=== PATIENT | female | born 2000 | race Caucasian/White ===

== ENCOUNTER → 2019-10-20 | Outpatient (REF) | payer OTHER ==
[2019-10-20 15:17] LABS: HEMATOCRIT 37.2 % (36.0-47.0); HEMOGLOBIN 12.6 g/dl (12.0-15.5); MEAN CORPUSCULAR HEMOGLOBIN 29.1 pg (27.0-33.0); MEAN CORPUSCULAR HGB CONC 33.9 g/dl (32.0-36.5); MEAN CORPUSCULAR VOLUME 85.9 fl (80.0-96.0); PLATELET COUNT, AUTOMATED 343 10^3/uL (150-450); RED BLOOD COUNT 4.33 10^6/uL (4.00-5.40); WHITE BLOOD COUNT 7.1 10^3/uL (4.0-10.0)
[2019-10-20 15:38] LABS: HEMOGLOBIN A1c 5.1 %
[2019-10-20 16:03] LABS: HCG, SERUM QUANTITATIVE 13674 MIU/ML; RUBELLA IgG QUALITATIVE IMMUNE (IMMUNE)
[2019-10-20 16:30] LABS: HIV 1&2 SCREEN CENTAUR NEGATIVE (NEGATIVE)
[2019-10-23 12:39] LABS: HEPATITIS B SURFACE ANTIGEN NEGATIVE (NEGATIVE)
[2019-10-23 13:07] LABS: HEPATITIS C VIRUS ABY INDEX 0.1 INDEX (<0.8)
[2019-10-23 14:56] LABS: TOXOPLASMA IgG ABY <3.0 IU/mL (0.0-7.1)
== END ==
LOC: M LAB REF 13:27
PROVIDERS: ATTEND Nurse Practitioner Women's Health
DX: Z32.01 Encounter for pregnancy test, result positive (principal); O36.80X0 Pregnancy with inconclusive fetal viability, not applicable or unspecified; Z3A.00 Weeks of gestation of pregnancy not specified

== ENCOUNTER → 2020-01-29 | Outpatient (CLI) | payer MEDICAID ==
--- NOTE | 2020-01-29 12:41 | REP ---
OB ULTRASOUND: Real-time sonographic evaluation of the gravid uterus is performed. There is a single living intrauterine gestation. Estimated gestational age is 20 weeks 0 days with EDC 07/14/2020. Today's measurements indicate appropriate growth. BPD 43 mm = 19 weeks 0 days, 25th percentile HC 165 mm = 19 weeks 1 day, 26th percentile AC 147 mm = 20 weeks 0 days, 50th percentile Femur length 33 mm = 20 weeks 2 days, 57th percentile HC/AC ratio 1.12 within normal range. Estimated weight 326 grams, 47th percentile. Cervix is closed and measures 3.2 cm in length. heart rate 157 beats per minute. SEEN/GROSSLY UNREMARKABLE Lateral ventricles Yes Posterior fossa Yes Upper lip Yes Four-chamber heart No LVOT No RVOT No Stomach Yes Cord insertion Yes Three vessel cord Yes Kidneys Yes Bladder Yes Spine Yes position: Breech. Placenta: Posterior and grade 0 with no previa or abruption. Amniotic fluid: Within normal limits. Electronically Signed by Karthik Mercedes MD 01/29/2020 06:07 P
== END ==
LOC: M RAD 09:35
PROVIDERS: ATTEND Obstetrics & Gynecology
DX: Z34.80 Encounter for supervision of other normal pregnancy, unspecified trimester (principal)

== ENCOUNTER → 2020-02-28 | Outpatient (CLI) | payer MEDICAID ==
--- NOTE | 2020-02-28 13:10 | REP ---
REASON: Followup anatomy. Prior examination 01/29/2020 failed to optimally visualize four chamber heart and ventricular outflow tracts. Multiple ultrasonographic images of the gravid uterus show a single living intrauterine gestation in the cephalic presentation. Doppler interrogation of the heart shows a heart rate of 153 beats per minute. The placenta is posterior and not lying. The subjective amniotic fluid volume is within normal limits. The cervix measures 3.5 cm in length and is closed. Evaluation of the maternal adnexal spaces showed no abnormalities. BPD 5.9 cm = 24 weeks 0 days HC 21.8 cm = 23 weeks 6 days AC 19.7 cm = 24 weeks 2 days A femur length was not obtained. The estimated weight is 667 grams which is at the 40th percentile for a 24 week 2 day gestational age. The four chamber heart and ventricular outflow tracts were optimally visualized today and found to be within normal limits. This completes the anatomical screening. IMPRESSION: Single living intrauterine gestation as described above with an estimated gestational age of 24 weeks 1 day via composite criteria and an estimated date of delivery of 06/18/2020 by today's exam. No anomalies were detected. Electronically Signed by Juwan Trujillo DO 02/28/2020 01:58 P
== END ==
LOC: M RAD 11:42
PROVIDERS: ATTEND Obstetrics & Gynecology
DX: Z34.02 Encounter for supervision of normal first pregnancy, second trimester (principal); Z3A.24 24 weeks gestation of pregnancy

== ENCOUNTER → 2020-03-18 | Outpatient (CLI) | payer MEDICAID ==
[2020-03-18 10:35] LABS: HEMOGLOBIN 12.1 g/dl (12.0-15.5); MEAN CORPUSCULAR HEMOGLOBIN 29.8 pg (27.0-33.0); MEAN CORPUSCULAR HGB CONC 34.6 g/dl (32.0-36.5); MEAN CORPUSCULAR VOLUME 86.2 fl (80.0-96.0); PLATELET COUNT, AUTOMATED 273 10^3/uL (150-450); RED BLOOD COUNT 4.06 10^6/uL (4.00-5.40); WHITE BLOOD COUNT 8.7 10^3/uL (4.0-10.0)
== END ==
LOC: M LAB 09:05
PROVIDERS: ATTEND Obstetrics & Gynecology
DX: Z34.02 Encounter for supervision of normal first pregnancy, second trimester (principal); Z36.89 Encounter for other specified antenatal screening

== ENCOUNTER → 2020-03-27 | Outpatient (CLI) | payer MEDICAID | LOC: M LAB 07:52 | PROVIDERS: ATTEND Obstetrics & Gynecology | DX: Z36.89 Encounter for other specified antenatal screening (principal) ==

== ENCOUNTER → 2020-04-26 | Outpatient (CLI) | payer MEDICAID ==
[~2020-04-26] MED LIST: IBUP-1114 PO; LABE20TAB PO; PERCOCET PO; PRENTAB9 PO
[2020-04-26 15:25] LABS: CREATININE 24 HOUR, URINE 1477.5 MG/24HR (600-1800); TOTAL PROTEIN 24 HOUR URINE 1130.2 MG/24HR (50-150); URINE TOTAL PROTEIN 150.7 MG/DL (0-12)
[2020-04-26 15:26] LABS: ALT/SGPT 14 U/L (12-78); BILIRUBIN,TOTAL 0.2 MG/DL (0.2-1.0); CREATININE FOR GFR 0.74 MG/DL (0.55-1.30); LDH LACTATE DEHYDROGENASE 213 U/L (84-246); URIC ACID 5.8 MG/DL (2.6-6.0)
== END ==
LOC: M LAB 14:18
PROVIDERS: ATTEND Advanced Practice Midwife
DX: Z34.03 Encounter for supervision of normal first pregnancy, third trimester (principal)

== ENCOUNTER 2020-04-29 11:35 | Inpatient (IN) | payer OTHER, MEDICAID ==
[~2020-04-29] VITALS: Ht 170.2 cm; Wt 111.8 kg
[2020-04-29] VITALS (51 sets, daily range): BP systolic 122–184; BP diastolic 65–105
[2020-04-29] MEDS ORDERED: IBUP-1114 PO (12:04)
[2020-04-29] MEDS ORDERED: PRENTAB9 PO (12:04)
[2020-04-29] MEDS ORDERED: BETAMETHASONE SOLUSPAN 6MG/ML 5ML VIAL (J0702 PER 3MG) IM ONE (12:30)
[2020-04-29] MEDS ORDERED: LR 1,000 ML IV ONE (12:30)
[2020-04-29 13:16] LABS: HEMATOCRIT 32.6 % (36.0-47.0); HEMOGLOBIN 11.1 g/dl (12.0-15.5); MEAN CORPUSCULAR HEMOGLOBIN 28.8 pg (27.0-33.0); MEAN CORPUSCULAR VOLUME 84.5 fl (80.0-96.0); PLATELET COUNT, AUTOMATED 157 10^3/uL (150-450); RED BLOOD COUNT 3.86 10^6/uL (4.00-5.40); WHITE BLOOD COUNT 9.1 10^3/uL (4.0-10.0)
[2020-04-29 13:52] LABS: ALT/SGPT 12 U/L (12-78); BILIRUBIN,TOTAL 0.3 MG/DL (0.2-1.0); CREATININE FOR GFR 0.74 MG/DL (0.55-1.30); LDH LACTATE DEHYDROGENASE 270 U/L (84-246); URIC ACID 5.6 MG/DL (2.6-6.0)
[2020-04-29 14:44] LABS: TOTAL PROTEIN,RANDOM URINE 405.2 MG/DL (0.0-12.0)
[2020-04-29] MEDS ORDERED: LABETALOL 100MG/20ML VIAL As Ordered ONE ×2 (15:31→21:34)
[2020-04-29] MEDS: LABETALOL 100MG/20ML VIAL IV SCH ×6 (15:38→21:36)
--- NOTE | 2020-04-29 16:03 | REP ---
Clinical: Pre-eclampsia. Findings: Examination demonstrates a single live intrauterine in cephalic presentation. motion is identified by technologist. Placenta is noted posteriorly and grade 3 without evidence for placenta previa or abruption. Amniotic fluid volume is normal. Cervix measures 3.3 cm in length and appears closed. No evidence for nuchal cord. Gestational age by LMP 33w 0d with BERENICE 06/17/2020. Gestational age by current measurements 33w 0d with BERENICE 06/17/2020. FHR equals 150 beats per minute. BPP: 06/22 Estimated weight 2114 grams (46th percentile). AFV: 13.5 (8.3 - 24.5) Impression: Single live in cephalic presentation. BPP and AFV are normal. Electronically Signed by Duane Fernández MD 04/29/2020 03:53 P
[2020-04-29 17:54] LABS: HEMATOCRIT 34.3 % (36.0-47.0); HEMOGLOBIN 11.9 g/dl (12.0-15.5); MEAN CORPUSCULAR HEMOGLOBIN 29.2 pg (27.0-33.0); MEAN CORPUSCULAR HGB CONC 34.7 g/dl (32.0-36.5); MEAN CORPUSCULAR VOLUME 84.3 fl (80.0-96.0); PLATELET COUNT, AUTOMATED 175 10^3/uL (150-450); RED BLOOD COUNT 4.07 10^6/uL (4.00-5.40); WHITE BLOOD COUNT 13.9 10^3/uL (4.0-10.0)
[2020-04-29 18:13] LABS: ALT/SGPT 14 U/L (12-78); BILIRUBIN,TOTAL 0.3 MG/DL (0.2-1.0); CREATININE FOR GFR 0.77 MG/DL (0.55-1.30); LDH LACTATE DEHYDROGENASE 284 U/L (84-246); URIC ACID 5.5 MG/DL (2.6-6.0)
[2020-04-29] MEDS: LR 1,000 ML IV SCH (19:56)
[2020-04-30] VITALS (57 sets, daily range): BP systolic 99–188; BP diastolic 55–96
[2020-04-30] MEDS: LR 1,000 ML IV SCH ×3 (03:49→19:11)
[2020-04-30 06:08] LABS: HEMATOCRIT 31.5 % (36.0-47.0); HEMOGLOBIN 10.8 g/dl (12.0-15.5); MEAN CORPUSCULAR HGB CONC 34.3 g/dl (32.0-36.5); MEAN CORPUSCULAR VOLUME 84.7 fl (80.0-96.0); PLATELET COUNT, AUTOMATED 150 10^3/uL (150-450); RED BLOOD COUNT 3.72 10^6/uL (4.00-5.40)
[2020-04-30] MEDS ORDERED: BETAMETHASONE SOLUSPAN 6MG/ML 5ML VIAL (J0702 PER 3MG) IM ONE (07:30)
[2020-04-30 07:42] LABS: ALT/SGPT 12 U/L (12-78); BILIRUBIN,TOTAL 0.3 MG/DL (0.2-1.0); LDH LACTATE DEHYDROGENASE 265 U/L (84-246); URIC ACID 6.3 MG/DL (2.6-6.0)
[2020-04-30] MEDS: LABETALOL 100MG/20ML VIAL IV SCH ×5 (11:09→16:38)
[2020-04-30] MEDS ORDERED: LABETALOL 100MG/20ML VIAL As Ordered ONE (15:10)
[2020-04-30 17:41] LABS: HEMATOCRIT 33.6 % (36.0-47.0); HEMOGLOBIN 11.4 g/dl (12.0-15.5); MEAN CORPUSCULAR HEMOGLOBIN 29.4 pg (27.0-33.0); MEAN CORPUSCULAR HGB CONC 33.9 g/dl (32.0-36.5); MEAN CORPUSCULAR VOLUME 86.6 fl (80.0-96.0); PLATELET COUNT, AUTOMATED 166 10^3/uL (150-450); RED BLOOD COUNT 3.88 10^6/uL (4.00-5.40); WHITE BLOOD COUNT 15.5 10^3/uL (4.0-10.0)
[2020-04-30 18:07] LABS: ALT/SGPT 13 U/L (12-78); BILIRUBIN,TOTAL 0.4 MG/DL (0.2-1.0); CREATININE FOR GFR 0.84 MG/DL (0.55-1.30); LDH LACTATE DEHYDROGENASE 324 U/L (84-246); URIC ACID 6.3 MG/DL (2.6-6.0)
[2020-04-30] MEDS ORDERED: dexameTHASONE 4 MG/ML 1ML VIAL (J1100 PER 1MG) As Ordered ONE (19:03)
[2020-04-30] MEDS ORDERED: ONDANSETRON 4MG/2ML VIAL As Ordered ONE (19:03)
[2020-04-30] MEDS ORDERED: OXYTOCIN INJ 10 UNITS/ML VIAL (J2590) As Ordered ONE ×2 (19:04→19:05)
[2020-04-30] MEDS ORDERED: MORPHINE PRES-FREE INJ 10 MG/10 ML VIAL (J2274) As Ordered ONE (19:08)
[2020-04-30] MEDS ORDERED: ceFAZolin 2 GM/D5W 50 ML IV BAG (J0690 PER 500MG) As Ordered ONE (19:10)
[2020-04-30] MEDS ORDERED: BICITRA 30ML SOLN UDC As Ordered ONE (19:10)
[2020-04-30] MEDS ORDERED: BICITRA 30ML SOLN UDC PO ONE (19:15)
[2020-04-30] MEDS ORDERED: ceFAZolin SOD 2 GM in IV 1 EA IV ONE (19:15)
[2020-04-30] MEDS ORDERED: OXYTOCIN DRIP 30 UNITS in IV 1 EA IV SCH ×2 (19:22→20:35)
[2020-04-30] MEDS ORDERED: ONDANSETRON 4MG/2ML VIAL IV PRN ×2 (19:28→21:00)
[2020-04-30] MEDS ORDERED: METOCLOPRAMIDE INJ 10MG/2ML VIAL (J2765 PER 1) IV PRN ×2 (19:28→21:00)
[2020-04-30] MEDS ORDERED: diphenhydrAMINE 50MG/ML VIAL (J1200) IV PRN (19:28)
[2020-04-30] MEDS ORDERED: NALBUPHINE HCL 10 MG/ML AMP (J2300) IV PRN (19:28)
[2020-04-30] MEDS ORDERED: NALOXONE INJ 0.4MG/1ML VIAL (J2310 PER 1MG) IV PRN ×2 (19:28)
[2020-04-30] MEDS ORDERED: MEASLES,MUMPS,RUBELLA VACCINE INJ (MMR-II) (90707) SC SCH ×2 (19:30→20:45)
[2020-04-30] MEDS ORDERED: MOM 30ML SUSPENSION UDC PO PRN ×2 (19:30→20:45)
[2020-04-30] MEDS ORDERED: RHOGAM 300 MCG (1500 IU) INJ (J2790) IM SCH ×2 (19:30→20:45)
[2020-04-30] MEDS ORDERED: PHENYLephrine 500MCG 5ML (100MCG/ML) SYRINGE As Ordered ONE (19:36)
[2020-04-30] MEDS ORDERED: FAMOTIDINE/NS 20 MG/50 ML BAG (S0028) As Ordered ONE (20:03)
[2020-04-30 20:35] LABS: CORD GAS ABE A -5.9; CORD GAS ABE V -5.8; CORD GAS HCO3 A 21.4 MEQ/L; CORD GAS HCO3 V 21.2 MEQ/L; CORD GAS O2 SAT A 37.1 %; CORD GAS PCO2 A 49.1 mmHg; CORD GAS PCO2 V 47.1 mmHg; CORD GAS PH A 7.258 UNITS; CORD GAS PH V 7.271 UNITS; CORD GAS PO2 A 19.9 mmHg; CORD GAS PO2 V 23.2 mmHg; CORD GAS SBC A 18.3 MEQ/L; CORD GAS SBC V 18.7 MEQ/L; CORD GAS TCO2 A 22.9 MEQ/L; CORD GAS TCO2 V 22.6 MEQ/L
[2020-04-30] MEDS ORDERED: PERCOCET 5MG/325MG TAB PO PRN ×3 (20:45→21:00)
[2020-04-30] MEDS ORDERED: MAGNESIUM *L&D* 4GM/100ML BAG (40MG/ML) As Ordered ONE (20:49)
[2020-04-30] MEDS ORDERED: OXYTOCIN 30 UNITS IN 0.9% NaCl 500ML IV BAG (J2590) As Ordered ONE (20:50)
[2020-04-30] MEDS ORDERED: MEPERIDINE INJ 25 MG/ML VIAL (J2175) IV PRN (21:00)
[2020-04-30] MEDS ORDERED: fentaNYL 100 MCG/2 ML INJECTION (J3010) IV PRN (21:00)
[2020-04-30] MEDS ORDERED: DOCUSATE SODIUM 100MG CAPSULE PO SCH (21:00)
[2020-04-30] MEDS ORDERED: LR 1,000 ML IV SCH (21:00)
[2020-04-30] MEDS ORDERED: MAGNESIUM *L&D* 4GM/100ML BAG (40MG/ML) IV ONE (21:15)
[2020-04-30] MEDS ORDERED: MAGNESIUM SULFATE 4% INJ 20GM/500ML (40MG/ML) As Ordered ONE (21:32)
--- NOTE | 2020-04-30 21:38 | HPE ---
DATE OF ADMISSION: 04/29/2020 Sun is a 19-year-old female, 1, para 0-0-0 with an estimated date of confinement (EDC) of 06/17/2020, estimated gestational age (EGA) 33-1/7 weeks gestation, who is being admitted after presenting to the office with extremely elevated blood pressure. She had a 24-hour urine collection that shows greater than 1500 mg of protein, at the time of presentation to the office, the patient also complains of mild headache. No blurred vision. No shortness of breath. No epigastric pain. Her blood pressure in the office was 160/102, a repeat blood pressure was 157/98. Given her symptoms, the decision was made to admit the patient, repeat lab will be ordered. We will initiate steroid for lung maturity, as well as potential use of magnesium sulfate for seizure prophylaxis. Her record reviewed, which was essentially unremarkable other than morbid obesity and elevated blood pressure towards the tail end of her . She also had the 24-hour urine collection. Her blood type is A+, her rubella was immune, hepatitis negative, HIV negative, GC, chlamydia negative. 1-hour sugar testing was abnormal at 159, patient's 3-hour sugar testing was abnormal; however, her sugar lags were within normal limits. Her GBS is unknown. PAST MEDICAL HISTORY: Significant for obesity. PAST SURGICAL HISTORY: Denies. FAMILY HISTORY: Significant for diabetes. SOCIAL HISTORY: The patient denies any alcohol, drug or cigarette smoking. REVIEW OF SYSTEMS: Unremarkable. MEDICATIONS: vitamin. ALLERGIES: Allergies to PENICILLIN and AMOXICILLIN; the patient is unsure of what reaction she has had. PHYSICAL EXAM ON ADMISSION: Obese female, in no acute distress. Abdomen: Soft, obese, nontender, nondistended. Gravid. Extremities: No clubbing, cyanosis, +1 to +2 lower extremity edema. Deep tendon reflexes (DTRs) 2/4 bilaterally. Blood pressure on admission - she had a blood pressure on admission of 157/95. The patient had blood pressure as high as 162/82. Vaginal Exam: The patient was closed, thick and posterior with a narrow pelvis. Her spot protein and creatinine ratio was 0.8, platelets of 150, uric acid of 5.6, LDH mildly elevated at 200. ASSESSMENT: 1. Intrauterine at 33 weeks gestation with preeclampsia, rule out severe preeclampsia. 2. Gestational diabetes, diet controlled. PLAN: The patient counseled extensively, risk and benefit of delivery with the diagnosis of preeclampsia discussed, the risk of prematurity also discussed, the need for the baby to be in the intensive care unit (NICU) discussed. Predelivery neonatology consult obtained. At this point, will monitor the patient, do serial pre-eclamptic profile, steroid will be initiated for lung maturity, and we will consider delivery post steroid if her condition worsens.
[2020-04-30] MEDS: MAG Sulf (OBGYN) 20GM/500ML 20,000 MG in IV 1 EA IV SCH (21:48)
[2020-04-30] MEDS: DOCUSATE SODIUM 100MG CAPSULE PO SCH (23:10)
[2020-05-01] VITALS (37 sets, daily range): BP systolic 88–137; BP diastolic 50–88
[2020-05-01] MEDS ORDERED: LR 1,000 ML IV SCH (01:15)
[2020-05-01 06:49] LABS: HEMOGLOBIN 9.6 g/dl (12.0-15.5); MEAN CORPUSCULAR HEMOGLOBIN 29.9 pg (27.0-33.0); MEAN CORPUSCULAR HGB CONC 33.1 g/dl (32.0-36.5); MEAN CORPUSCULAR VOLUME 90.3 fl (80.0-96.0); PLATELET COUNT, AUTOMATED 146 10^3/uL (150-450); RED BLOOD COUNT 3.21 10^6/uL (4.00-5.40); WHITE BLOOD COUNT 14.9 10^3/uL (4.0-10.0)
[2020-05-01 07:13] LABS: ALT/SGPT 18 U/L (12-78); BILIRUBIN,TOTAL 0.2 MG/DL (0.2-1.0); CREATININE FOR GFR 0.72 MG/DL (0.55-1.30); LDH LACTATE DEHYDROGENASE 326 U/L (84-246); URIC ACID 5.5 MG/DL (2.6-6.0)
[2020-05-01] MEDS: MAG Sulf (OBGYN) 20GM/500ML 20,000 MG in IV 1 EA IV SCH (08:07)
[2020-05-01] MEDS ORDERED: PRENATAL VITAMINS CHEWABLE TABLET PO SCH (09:00)
[2020-05-01] MEDS: PRENATAL VITAMINS CHEWABLE TABLET PO SCH (09:00)
[2020-05-01] MEDS: DOCUSATE SODIUM 100MG CAPSULE PO SCH ×2 (09:00→21:50)
[2020-05-02] VITALS: BP 139/82
[2020-05-02 02:00] VITALS: BP 140/89
[2020-05-02 06:00] VITALS: BP 145/92
[2020-05-02] MEDS: DOCUSATE SODIUM 100MG CAPSULE PO SCH (08:12)
[2020-05-02] MEDS: PRENATAL VITAMINS CHEWABLE TABLET PO SCH (08:12)
[2020-05-02] MEDS ORDERED: BOOSTRIX/ADACEL VACCINE (DIPHTH/PERTUSS/ACELL/TETANUS) 0.5ML SYR IM ONE (09:00)
--- NOTE | 2020-05-02 10:41 | RO ---
DATE OF PROCEDURE: 04/30/2020 Sun is a 19-year-old female, 1, para 0, who was admitted at 33-1/7 weeks gestation with preeclampsia with some severe features. She also has a history of gestational diabetes diet controlled. She was monitored in labor and delivery. Serial pre-eclamptic lab was noted. Her uric acid continues to be elevated as well as her LDH. She did develop some headache, no blurred vision, with epigastric pain. At this point, given that she was post steroids and her symptoms, a decision was made to proceed with delivery. The patient requested delivery via a primary section. After obtaining informed consent, the patient was then taken to the operating room for the above-noted procedure. PREOPERATIVE DIAGNOSES: 1. Preeclampsia with severe features. 2. Gestational diabetes. 3. Intrauterine at 33-2/7 weeks gestation, remote from delivery. POSTOPERATIVE DIAGNOSES: 1. Preeclampsia with severe features. 2. Gestational diabetes. 3. Intrauterine at 33-2/7 weeks gestation, remote from delivery. PROCEDURE: Primary low transverse section. SURGEON: Dr. Juan Narayan PROFESSOR OF GRAPHIC DESIGN: ANESTHESIA: Spinal. COMPLICATIONS: None. ESTIMATED BLOOD LOSS: 600 mL. FINDINGS: Live male infant in occiput transverse position. Apgars 8 and 9. weight 3 pounds 13 ounces. Normal-appearing tubes and ovaries. DESCRIPTION OF PROCEDURE: After obtaining informed consent, the patient was taken to the operating room where spinal anesthetic was found to be adequate. She was then draped and prepped in the usual sterile fashion in the supine position. At this point, a Pfannenstiel incision was made. This was carried down to the fascia. Fascia was incised in midline fashion and carried through laterally. Superior aspect of the fascia then grasped with Mervat clamps, tented off and dissected off the rectus muscles sharply. The inferior aspect was dissected off in a similar fashion. Rectus muscles midline fashion. Peritoneum identified. Peritoneal cavity entered bluntly. Superior and inferior dissection of the peritoneum was then done with visualization of the bladder. At this point, a Mobius skin retractor was placed. A low-transverse uterine incision was made. Infant was delivered in atraumatic fashion. Nose and mouth bulb suctioned. Cord doubly clamped and cut and was handed over to the waiting lead database administrator. Cord blood and cord gas was sent. Placenta removed manually. Uterus cleared of all clot and debris. The uterine incision was then repaired in two separate layers of #0 Vicryl suture. Pelvis copiously irrigated with normal saline and suctioned out. We then turned our attention to the peritoneum which was closed in a running fashion using #2-0 Vicryl. Fascia closed in two separate segment of #0 Vicryl sutures. All superficial bleeders coagulated. The skin was reapproximated in subcuticular fashion using #3-0 Vicryl on a Swapnil. Steri-Strips placed. The patient tolerated procedure well. She was then transferred to recovery room in stable condition.
[2020-05-02 10:57] VITALS: BP 150/84
[2020-05-02] MEDS ORDERED: PERCOCET PO (13:17)
[2020-05-02] MEDS ORDERED: LABE20TAB PO (13:17)
[2020-05-02] MEDS ORDERED: LABETALOL 200 MG TAB PO SCH (13:30)
[2020-05-02 13:41] VITALS: BP 150/84
[2020-05-02 13:44] LABS: HEMATOCRIT 29.2 % (36.0-47.0); HEMOGLOBIN 9.6 g/dl (12.0-15.5); MEAN CORPUSCULAR HEMOGLOBIN 28.9 pg (27.0-33.0); MEAN CORPUSCULAR HGB CONC 32.9 g/dl (32.0-36.5); PLATELET COUNT, AUTOMATED 172 10^3/uL (150-450); RED BLOOD COUNT 3.32 10^6/uL (4.00-5.40); WHITE BLOOD COUNT 11.7 10^3/uL (4.0-10.0)
[2020-05-02 14:09] LABS: ALT/SGPT 17 U/L (12-78); BILIRUBIN,TOTAL 0.2 MG/DL (0.2-1.0); CREATININE FOR GFR 0.73 MG/DL (0.55-1.30); LDH LACTATE DEHYDROGENASE 373 U/L (84-246); URIC ACID 5.6 MG/DL (2.6-6.0)
[2020-05-02 14:25] VITALS: BP 135/92
--- NOTE | 2020-05-03 08:58 | OBDS ---
[facility] Obstetrical Discharge Sum. Obstetrical Discharge Summary Building Supervisor/Provider: Juan Narayan DO Date: May 02, 2020 Time: 14:00 : 1 Term: 0 Pre-term: 1 Abortions: 0 Livin VDRL: Non-Reactive Rh: Positive Rubella: Immune Anesthesia: Regional Anesthesia A/P, Post Course List any complications Admission diagnosis: Severe pre-eclampsia; IUP at 33 weeks. Discharge diagnosis: Same Condition at Discharge: [Stable] Discharge Instructions: [Nothing in the vagian for 6 weeks. Patient to call if any severe SCHNEIDER, blurred vision or bleeding] Activity: [as tolerated] Diet: [regular] Medications: [See list] Follow-up: [on Wednesday for BP check and in 2 weeks for incision check.] Other: Juan Narayan DO May 03, 2020 08:58
== END 2020-05-02 16:00 | disposition home or self-care (01) | DRG 540 ==
LOC: M LDO 11:35 → M LDI 14:21 → M OBS 05-01 15:00
PROVIDERS: ADMIT Obstetrics & Gynecology; ATTEND Obstetrics & Gynecology
PROC: 10D00Z1 Extraction of Products of Conception, Low, Open Approach (ICD-10-PCS; principal; 2020-04-30 19:06)
DX: O14.24 HELLP syndrome, complicating childbirth (principal); E66.9 Obesity, unspecified; O24.410 Gestational diabetes mellitus in pregnancy, diet controlled; O99.214 Obesity complicating childbirth; Z37.0 Single live birth; Z3A.33 33 weeks gestation of pregnancy

== ENCOUNTER 2025-07-29 01:20 | Emergency (ER) | payer MEDICAID, OTHER, SELFPAY ==
[~2025-07-29] VITALS: Ht 167.6 cm; Wt 100.0 kg
[2025-07-29] MEDS ORDERED: LIDOCAINE 1% SDV 30 ML VIAL SC SCH (03:45)
[2025-07-29] MEDS: ACETAMINOPHEN 500 MG TAB PO ONE (03:58)
[2025-07-29] MEDS: LIDOCAINE 1% MDV 20 ML VIAL SC ONE (05:04)
[2025-07-29 08:54] VITALS: BP 118/72; TEMP 97.7; O2SAT 99
== END 2025-07-29 09:01 | disposition home or self-care (01) ==
LOC: M ED 01:20
DX: S01.81XA Laceration without foreign body of other part of head, initial encounter (principal); Y04.0XXA Assault by unarmed brawl or fight, initial encounter; F10.10 Alcohol abuse, uncomplicated; Z88.0 Allergy status to penicillin; Z88.1 Allergy status to other antibiotic agents; Y92.59 Other trade areas as the place of occurrence of the external cause; Y93.89 Activity, other specified; Y99.9 Unspecified external cause status